=== PATIENT | male | born 1930 | race Caucasian/White ===

== ENCOUNTER → 2019-07-12 | Outpatient (CLI) | payer OTHER, MEDICARE ==
[~2019-07-12] MED LIST: ACCUPRIL40 MG PO; ACETAMINOPHEN325 M1 PO; AMLODIPINE BESY10 MG PO; ASPERDRINK81 MG PO; ASPIRIN EC81 M1 PO; ASPIRIN81 M2 PO; ATORVASTATIN CA10 MG PO; COUMADIN 10MG T10 M1 PO; COUMADIN7.5 MG PO; DILTIAZEM 24HR240 M2 PO; ENOXAPARIN120 MG/0.8 SQ; FINASTERIDE5 MG PO; IMODIUM A-1 MG/7.5 M; IMODIUM A-1 MG/7.5 M PO; LOPERAMIDE 2 MG2 M1 PO; MELOXICAM7.5 MG PO; NEXIUM40 MG PO; OMEGA 3 1,0001 EACH PO; OMEGA-31000 M1 PO; PROBIOTIC1 EAC1 PO; SENNA8.6 MG PO; SIMVASTATIN20 MG PO; VITAMIN D32000 UNI1 PO; VITAMINC500 PO; WARFARIN SODIU7.5 MG PO; WARFARIN SODIUM10 MG PO; ZOCOR 20 MG TAB20 M1 PO
== END ==
LOC: RAD 16:33
DX: I10 Essential (primary) hypertension (principal); E78.5 Hyperlipidemia, unspecified

== ENCOUNTER → 2020-03-05 | Outpatient (CLI) | payer OTHER, MEDICARE | LOC: RAD 10:48 | PROVIDERS: ATTEND Family Medicine | DX: M47.814 Spondylosis without myelopathy or radiculopathy, thoracic region (principal) ==

== ENCOUNTER 2020-11-24 12:38 | Emergency (ER) | payer OTHER, MEDICARE ==
[~2020-11-24] VITALS: Ht 177.8 cm; Wt 68.0 kg
[2020-11-24 14:29] VITALS: BP 137/73
== END 2020-11-24 14:59 | disposition home or self-care (01) ==
LOC: ER 12:38
DX: S61.012A Laceration without foreign body of left thumb without damage to nail, initial encounter (principal); I48.91 Unspecified atrial fibrillation; I10 Essential (primary) hypertension; Z79.899 Other long term (current) drug therapy; Z91.013 Allergy to seafood; Z87.891 Personal history of nicotine dependence; Z72.89 Other problems related to lifestyle; Z86.711 Personal history of pulmonary embolism; W27.0XXA Contact with workbench tool, initial encounter; Y93.89 Activity, other specified; Y92.89 Other specified places as the place of occurrence of the external cause; Y99.8 Other external cause status

== ENCOUNTER 2020-12-03 10:12 | Emergency (ER) | payer OTHER, MEDICARE ==
[~2020-12-03] VITALS: Ht 177.8 cm; Wt 74.8 kg
[2020-12-03 10:21] VITALS: BP 92/52
[2020-12-03] MEDS ORDERED: KEFLEX250 MG PO (10:55)
== END 2020-12-03 11:06 | disposition home or self-care (01) ==
LOC: ER 10:12
DX: S61.012D Laceration without foreign body of left thumb without damage to nail, subsequent encounter (principal); I10 Essential (primary) hypertension; I48.91 Unspecified atrial fibrillation; L08.9 Local infection of the skin and subcutaneous tissue, unspecified; F17.210 Nicotine dependence, cigarettes, uncomplicated; Z91.013 Allergy to seafood; Z98.890 Other specified postprocedural states; X58.XXXD Exposure to other specified factors, subsequent encounter